=== PATIENT | female | born 1985 | race Caucasian/White ===

== ENCOUNTER 2017-01-19 11:25 | Emergency (ER) | payer OTHER ==
[2017-01-19 11:45] VITALS: BP 115/71
--- NOTE | 2017-01-19 13:43 | UC ---
Throat Pain/Nasal Evelio HPI - HPI Summary HPI Summary: SWOLLEN TONSILS AND SORENESS SINCE THIS MORNING. NO FEVER. NO RASHES. - History of Current Complaint Chief Complaint: UCRespiratory Stated Complaint: throat complaint Time Seen by Provider: 01/19/17 12:35 Hx Obtained From: Patient Hx Last Menstrual Period: 12/29/16 Onset/Duration: Gradual Onset, Lasting Hours, Still Present Severity: Mild Pain Intensity: 0 Pain Scale Used: 0-10 Numeric Cough: None Associated Signs & Symptoms: Positive: Hoarseness. Negative: Sinus Discomfort, Nasal Discharge, Fever - Epiglottits Risk Factors Epiglottis Risk Factors: Negative - Allergies/Home Medications Allergies/Adverse Reactions: Allergies Allergy/AdvReac Type Severity Reaction Status Date / Time No Known Allergies Allergy Verified 01/19/17 11:45 Home Medications: Home Medications Ethynodiol Diacet & Eth Estrad [Kelnor ] 1 tab PO 01/19/17 [History] Solifenacin(NF) [Vesicare(NF)] 10 mg PO 01/19/17 [History] PMH/Surg Hx/FS Hx/Imm Hx Previously Healthy: Yes - Surgical History Surgical History: Yes Surgery Procedure, Year, and Place: lt knee 2005 - Family History Known Family History: Negative: Diabetes - Social History Occupation: Employed Full-time Lives: With Family Alcohol Use: Weekly Substance Use Type: None Smoking Status (MU): Never Smoked Tobacco Review of Systems Constitutional: Negative Skin: Negative Eyes: Negative ENT: Sore Throat Respiratory: Negative Cardiovascular: Negative Gastrointestinal: Negative Genitourinary: Negative Motor: Negative Neurovascular: Negative Musculoskeletal: Negative Neurological: Negative Psychological: Negative All Other Systems Reviewed And Are Negative: Yes Physical Exam Triage Information Reviewed: Yes Appearance: Well-Appearing, No Pain Distress, Well-Nourished Vital Signs: Initial Vital Signs Temp 98.0 F 01/19/17 11:42 Pulse 67 01/19/17 11:42 Resp 18 01/19/17 11:42 BP 115/71 01/19/17 11:42 Pulse Ox 100 01/19/17 11:42 Vital Signs Reviewed: Yes Eye Exam: Normal ENT: Positive: Hearing grossly normal, Pharyngeal erythema, TMs normal, Tonsillar swelling Dental Exam: Normal Neck exam: Normal Neck: Positive: Supple, Nontender, No Lymphadenopathy Respiratory Exam: Normal Respiratory: Positive: Chest non-tender, Lungs clear, Normal breath sounds, No respiratory distress, No accessory muscle use Cardiovascular Exam: Normal Cardiovascular: Positive: RRR, No Murmur Abdominal Exam: Normal Musculoskeletal Exam: Normal Musculoskeletal: Positive: Strength Intact, ROM Intact Neurological Exam: Normal Psychological Exam: Normal Skin Exam: Normal Throat Pain/Nasal Course/Dx - Differential Dx/Diagnosis Differential Diagnosis/HQI/PQRI: Laryngitis, Mononucleosis, Pharyngitis, Tonsillitis, URI Provider Diagnoses: TONSILLITIS Discharge - Discharge Plan Condition: Stable Disposition: HOME Patient Education Materials: Tonsillitis (ED) Referrals: [facility] [Outside] No Primary Care Phys,NOPCP [Primary Care Provider] -
== END 2017-01-19 13:12 | disposition home or self-care (01) ==
LOC: UCEAST 11:25
DX: J03.90 Acute tonsillitis, unspecified (principal)
CPT/HCPCS: 87651; 99201; G0463